=== PATIENT | female | born 1975 | race Caucasian/White ===

== ENCOUNTER 2016-12-16 19:15 | Inpatient (IN) | payer MEDICARE, MEDICAID ==
[~2016-12-16] VITALS: Ht 167.6 cm; Wt 96.7 kg
[~2016-12-16 19:15] MED LIST: GABA600T PO; IBUP200T48 PO; OXYC-302 PO; PREN1TAB47 PO; TRAM-47 PO
[2016-12-16] MEDS ORDERED: SODIUM CHLORIDE 0.9% 1,000ML IVBOLUS ONE ×2 (19:30→22:00)
[2016-12-16] MEDS ORDERED: SODIUM CHLORIDE FLUSH 10ML SYR IVF ONE (19:30)
[2016-12-16 20:45] LABS: BLOOD UREA NITROGEN 7 mg/dL (7-18)
[2016-12-16 20:50] LABS: HEMATOCRIT 40.5 % (34.6-47.8); HEMOGLOBIN 13.3 g/dL (11.7-16.4); WHITE BLOOD COUNT 12.7 x10^3/uL (3.4-10)
[2016-12-16] MEDS ORDERED: ONDANSETRON 2MG/ML, 2ML IVPush ONE (22:00)
[2016-12-16] MEDS ORDERED: morphine SULFATE 10 MG/ML, 1ML IVPush ONE (22:00)
[2016-12-16] MEDS ORDERED: CLINDAMYCIN PMX 900MG/50ML 50 ML IV ONE (22:00)
[2016-12-16] MEDS ORDERED: LEVOFLOXACIN/PMX 750MG/150ML 150 ML IV ONE (22:30)
[2016-12-16] MEDS ORDERED: NS + 20MEQ KCL 1,000 ML IV SCH (22:36)
[2016-12-16] MEDS ORDERED: morphine SULFATE 10 MG/ML, 1ML ONE (22:45)
[2016-12-16] MEDS ORDERED: ONDANSETRON 2MG/ML, 2ML ONE (22:45)
[2016-12-16] MEDS ORDERED: CLINDAMYCIN PMX 900MG/50ML 50 ML ONE (22:45)
[2016-12-16] MEDS ORDERED: DOCUSATE 100 MG CAPSULE PO PRN (23:00)
[2016-12-16] MEDS ORDERED: ONDANSETRON 2MG/ML, 2ML IVPush PRN (23:00)
[2016-12-16] MEDS ORDERED: ACETAMINOPHEN 325 MG TABLET PO PRN (23:00)
[2016-12-16] MEDS ORDERED: POLYETHYLENE GLYCOL 17 GM PACKET PO PRN (23:00)
[2016-12-16 23:55] VITALS: BP 107/67
[2016-12-17] MEDS: ENOXAPARIN 40 MG/0.4 ML SQ SCH ×3 (00:52→23:03)
[2016-12-17] MEDS: NICOTINE 14MG/24 HR PATCH.TD24 TD SCH ×2 (00:53→23:00)
[2016-12-17] MEDS ORDERED: GABA600T2 PO (01:05)
[2016-12-17] MEDS: CEFTRIAXONE PMX 1GM/50ML 50 ML IV SCH (01:22)
[2016-12-17] MEDS: METRONIDAZOLE PMX 500MG/100ML 100 ML IV SCH ×3 (02:31→18:38)
[2016-12-17] MEDS: HYDROcodone/APAP 5/325 TABLET PO PRN ×5 (03:35→23:04)
[2016-12-17 05:45] LABS: HEMATOCRIT 39.6 % (34.6-47.8)
[2016-12-17 05:56] LABS: BLOOD UREA NITROGEN 7 mg/dL (7-18)
[2016-12-17 07:34] VITALS: BP 102/63
[2016-12-17] MEDS ORDERED: LORazepam 1MG TABLET ONE (11:35)
[2016-12-17] MEDS: LACTATED RINGERS 1,000 ML IV SCH ×3 (11:45→23:04)
[2016-12-17] MEDS: morphine SULFATE 10 MG/ML, 1ML IVPush PRN (11:48)
[2016-12-17] MEDS: LORazepam 0.5MG TABLET PO PRN (14:03)
[2016-12-17 14:30] VITALS: BP 125/74
[2016-12-17] MEDS ORDERED: ACETAMINOPHEN 325 MG TABLET PO PRN (18:30)
[2016-12-17] MEDS ORDERED: DOCUSATE 100 MG CAPSULE PO PRN (18:30)
[2016-12-17] MEDS ORDERED: POLYETHYLENE GLYCOL 17 GM PACKET PO PRN (18:30)
[2016-12-17 19:00] VITALS: BP 114/71
[2016-12-18] MEDS: CEFTRIAXONE PMX 1GM/50ML 50 ML IV SCH (00:52)
[2016-12-18] MEDS: METRONIDAZOLE PMX 500MG/100ML 100 ML IV SCH ×3 (02:51→17:58)
[2016-12-18 03:03] VITALS: BP 102/58
[2016-12-18] MEDS: LORazepam 0.5MG TABLET PO PRN ×2 (03:04→20:35)
[2016-12-18 06:32] LABS: BLOOD UREA NITROGEN 7 mg/dL (7-18)
[2016-12-18] MEDS ORDERED: IBUPROFEN 200 MG TABLET PO PRN (08:00)
[2016-12-18 08:01] VITALS: BP 115/64
[2016-12-18] MEDS: HYDROcodone/APAP 10/325 MG TABLET PO PRN ×3 (08:13→22:22)
[2016-12-18] MEDS: GABAPENTIN 300 MG CAPSULE PO SCH ×3 (10:27→20:34)
[2016-12-18] MEDS: morphine SULFATE 10 MG/ML, 1ML IVPush PRN (15:14)
[2016-12-18 15:53] VITALS: BP 106/57
[2016-12-18] MEDS: NICOTINE 14MG/24 HR PATCH.TD24 TD SCH ×2 (19:56→22:17)
[2016-12-18] MEDS ORDERED: LORazepam 1MG TABLET ONE (20:28)
[2016-12-18 20:53] VITALS: BP 114/65
[2016-12-19] MEDS: CEFTRIAXONE PMX 1GM/50ML 50 ML IV SCH (00:32)
[2016-12-19 00:43] VITALS: BP 105/71
[2016-12-19] MEDS: METRONIDAZOLE PMX 500MG/100ML 100 ML IV SCH ×3 (02:33→18:15)
[2016-12-19 07:09] VITALS: BP 118/68
[2016-12-19] MEDS: LORazepam 0.5MG TABLET PO PRN ×2 (07:23→14:54)
[2016-12-19] MEDS: GABAPENTIN 300 MG CAPSULE PO SCH ×3 (07:23→20:51)
[2016-12-19] MEDS: HYDROcodone/APAP 10/325 MG TABLET PO PRN ×4 (07:23→21:30)
[2016-12-19 13:15] VITALS: BP 120/74
[2016-12-19] MEDS ORDERED: LORazepam 1MG TABLET ONE (14:52)
[2016-12-19 19:41] VITALS: BP 119/74
[2016-12-19] MEDS: ENOXAPARIN 40 MG/0.4 ML SQ SCH (21:30)
[2016-12-19] MEDS: NICOTINE 14MG/24 HR PATCH.TD24 TD SCH (21:31)
[2016-12-20] MEDS: CEFTRIAXONE PMX 1GM/50ML 50 ML IV SCH (01:03)
[2016-12-20] MEDS: morphine SULFATE 10 MG/ML, 1ML IVPush PRN (01:08)
[2016-12-20] MEDS: METRONIDAZOLE PMX 500MG/100ML 100 ML IV SCH ×2 (03:02→10:42)
[2016-12-20 04:13] VITALS: BP 110/59
[2016-12-20 06:03] LABS: HEMATOCRIT 40.5 % (34.6-47.8); HEMOGLOBIN 13.4 g/dL (11.7-16.4); WHITE BLOOD COUNT 8.5 x10^3/uL (3.4-10)
[2016-12-20 06:12] LABS: BLOOD UREA NITROGEN 10 mg/dL (7-18)
[2016-12-20 07:43] VITALS: BP 120/59
[2016-12-20] MEDS: GABAPENTIN 300 MG CAPSULE PO SCH (07:44)
[2016-12-20] MEDS: HYDROcodone/APAP 10/325 MG TABLET PO PRN ×2 (07:44→13:47)
[2016-12-20] MEDS ORDERED: METR500T PO (14:16)
[2016-12-20] MEDS ORDERED: IBUP-1484 PO (14:16)
[2016-12-20] MEDS ORDERED: CEFD300C37 PO (14:16)
[2016-12-20] MEDS ORDERED: HYDR-3240 PO (14:34)
[2016-12-20 15:30] VITALS: BP 121/75
== END 2016-12-20 15:42 | disposition home or self-care (01) | DRG 871 ==
LOC: SUATTDRO 22:25 → ED 22:43 → EDIP 23:01 → 4NOR 23:50
PROVIDERS: ADMIT Family Medicine; ATTEND Family Medicine
DX: A41.9 Sepsis, unspecified organism (principal); G92 Toxic encephalopathy; L02.212 Cutaneous abscess of back [any part, except buttock and flank]; L02.511 Cutaneous abscess of right hand; L03.113 Cellulitis of right upper limb; F15.129 Other stimulant abuse with intoxication, unspecified; F17.210 Nicotine dependence, cigarettes, uncomplicated; M19.90 Unspecified osteoarthritis, unspecified site; M54.30 Sciatica, unspecified side; Z80.3 Family history of malignant neoplasm of breast; Z80.42 Family history of malignant neoplasm of prostate; Z82.49 Family history of ischemic heart disease and other diseases of the circulatory system; Z83.3 Family history of diabetes mellitus; Z91.19 Patient's noncompliance with other medical treatment and regimen; Z98.51 Tubal ligation status; Z88.0 Allergy status to penicillin; Z88.8 Allergy status to other drugs, medicaments and biological substances; Z71.6 Tobacco abuse counseling
CPT/HCPCS: 36415; 71020; 80048; 82040; 83605; 83735; 85025; 85651; 86592; 87040; 96365; J0696; J1650; J2405; J3480; J2270; J7030; J7120

== ENCOUNTER 2017-10-23 01:05 | Emergency (ER) | payer MEDICARE ==
[~2017-10-23] VITALS: Ht 172.7 cm; Wt 210.0 kg
[~2017-10-23 01:05] MED LIST changes: +CEFD300C37 PO; +GABA600T2 PO; +HYDR-3240 PO; +IBUP-1484 PO; -IBUP200T48 PO; +IBUP200T49 PO; +METR500T PO
[2017-10-23] MEDS ORDERED: ONDANSETRON ODT 4 MG ONE (01:13)
[2017-10-23 01:20] VITALS: BP 123/52
[2017-10-23] MEDS ORDERED: ONDANSETRON ODT 4 MG PO ONE (01:30)
[2017-10-23 01:34] LABS: MEAN CORPUSCULAR HEMOGLOBIN 25.2 pg (27.0-34.8); MEAN CORPUSCULAR HGB CONC 32.6 g/dL (32.4-35.8); MEAN CORPUSCULAR VOLUME 77.3 fL (80-100); MEAN PLATELET VOLUME 8.4 fL (7.4-10.4); PLATELET COUNT 274 x10^3/uL (130-400); RED BLOOD COUNT 5.55 x10^6/uL (3.82-5.3)
[2017-10-23 01:36] LABS: BASOPHILS # (AUTO) 0.02 x10^3/uL (0-0.1); BASOPHILS % (AUTO) 0 % (0-1); EOSINOPHILS # (AUTO) 0.18 x10^3/uL (0-0.4); EOSINOPHILS % (AUTO) 1 % (1-7); LYMPHOCYTES # (AUTO) 2.19 x10^3/uL (1-3.4); LYMPHOCYTES % (AUTO) 11 % (22-44); MD NO; MONOCYTES # (AUTO) 0.32 x10^3/uL (0.2-0.8); MONOCYTES % (AUTO) 2 % (2-9); NEUTROPHILS # (AUTO) 16.65 x10^3/uL (1.8-6.8); NEUTROPHILS % (AUTO) 86 % (42-75)
[2017-10-23 01:48] LABS: ALANINE AMINOTRANSFERASE 25 U/L (12-78); ANION GAP 9 mmol/L (5-15); CALCIUM 8.9 mg/dL (8.5-10.1); CHLORIDE 108 mmol/L (98-107); CREATININE 0.95 mg/dL (0.55-1.02)
[2017-10-23 01:53] LABS: ALKALINE PHOSPHATASE 93 U/L (45-117); BILIRUBIN,TOTAL 0.3 mg/dL (0.2-1.0); TOTAL PROTEIN 8.8 g/dL (6.4-8.2)
[2017-10-23] MEDS ORDERED: SODIUM CHLORIDE 0.9% 1,000ML IVBOLUS ONE (02:00)
== END 2017-10-23 03:32 | disposition home or self-care (01) ==
LOC: ED 01:48
DX: R11.2 Nausea with vomiting, unspecified (principal); R10.9 Unspecified abdominal pain
CPT/HCPCS: 36415; 80053; 83690; 84703; 85025; 96360; 99284; J7030; Q0162

== ENCOUNTER 2018-02-22 01:09 | Emergency (ER) | payer MEDICARE ==
[~2018-02-22] VITALS: Ht 172.7 cm; Wt 70.0 kg
[~2018-02-22 01:09] MED LIST changes: -GABA600T2 PO; +GABA600T7 PO
--- NOTE | 2018-02-22 01:16 | NUR ---
PT BIB [facility] C/O ULQ ABD PAIN. STATES HOSPITALIZ[facility] DAYS AT [facility] AND "THEY DIDNT DO ANYTHING FOR ME." PT WHOLE ABD APPEARS DISTENDED. STATES D/C TODAY FROM [facility]. DENIES SOB/CP. MONITORING APPLIED. VSS. CALL LIGHT WITHIN REACH. AWAITING MD ASSESSMENT.
[2018-02-22] MEDS ORDERED: SODIUM CHLORIDE FLUSH 10ML SYR IVF ONE (02:00)
[2018-02-22] MEDS ORDERED: ONDANSETRON 2MG/ML, 2ML IVPush ONE (02:00)
[2018-02-22] MEDS ORDERED: ONDANSETRON 2MG/ML, 2ML ONE (02:05)
--- NOTE | 2018-02-22 02:18 | NUR ---
BREAK RN: IV PLACED. BLOOD DRAWN, URINE SAMPLE OBTAINE AND SENT TO LAB. MEDICATED FOR NAUSEA.
[2018-02-22 02:22] LABS: BASOPHILS # (AUTO) 0.07 x10^3/uL (0-0.1); BASOPHILS % (AUTO) 1 % (0-1); EOSINOPHILS # (AUTO) 0.35 x10^3/uL (0-0.4); EOSINOPHILS % (AUTO) 3 % (1-7); LYMPHOCYTES # (AUTO) 2.14 x10^3/uL (1-3.4); LYMPHOCYTES % (AUTO) 17 % (22-44); MD NO; MEAN CORPUSCULAR HEMOGLOBIN 24.7 pg (27.0-34.8); MEAN CORPUSCULAR HGB CONC 32.2 g/dL (32.4-35.8); MEAN CORPUSCULAR VOLUME 76.8 fL (80-100); MONOCYTES # (AUTO) 0.81 x10^3/uL (0.2-0.8); MONOCYTES % (AUTO) 6 % (2-9); NEUTROPHILS # (AUTO) 9.62 x10^3/uL (1.8-6.8); NEUTROPHILS % (AUTO) 74 % (42-75); PLATELET COUNT 272 x10^3/uL (130-400)
[2018-02-22 02:24] LABS: MICROSCOPIC INDICATED
[2018-02-22 02:25] LABS: CULTURE INDICATED? NO
[2018-02-22 02:31] LABS: ALANINE AMINOTRANSFERASE 27 U/L (12-78); ALBUMIN 3.1 g/dL (3.4-5.0); ANION GAP 8 mmol/L (5-15); CALCIUM 8.5 mg/dL (8.5-10.1); CHLORIDE 102 mmol/L (98-107); CREATININE 0.73 mg/dL (0.55-1.02)
[2018-02-22 02:35] VITALS: BP 108/54
[2018-02-22 02:36] LABS: ALKALINE PHOSPHATASE 64 U/L (45-117); BILIRUBIN,TOTAL 0.3 mg/dL (0.2-1.0); TOTAL PROTEIN 7.1 g/dL (6.4-8.2)
[2018-02-22 02:58] LABS: AMPHETAMINE SCREEN, URINE Negative (Negative); BARBITURATE SCREEN, URINE Negative (Negative); BENZODIAZEPINE SCREEN, URINE Negative (Negative); CANNABINOID SCREEN, URINE Positive (Negative); COCAINE SCREEN, URINE Negative (Negative); METHADONE SCREEN, URINE Negative (Negative); OPIATE SCREEN, URINE Negative (Negative)
--- NOTE | 2018-02-22 03:11 | NUR ---
PT SLEEPING COMFORTABLY ON GURNEY. RR EVEN AND UNLABORED. EASILY ROUSABLE TO NAME. CALL LIGHT WITHIN REACH. AWAITING RECORDS FROM [facility].
== END 2018-02-22 04:17 | disposition home or self-care (01) ==
LOC: ED 02:43
DX: F15.10 Other stimulant abuse, uncomplicated (principal); F12.10 Cannabis abuse, uncomplicated; R10.84 Generalized abdominal pain; G56.00 Carpal tunnel syndrome, unspecified upper limb
CPT/HCPCS: 36415; 74021; 80053; 80307; 81001; 83690; 84703; 85025; 96374; 99284; J2405